=== PATIENT | female | born 1950 | race Caucasian/White ===

== ENCOUNTER 2018-01-02 21:20 | Emergency (ER) | payer OTHER, MEDICARE ==
[~2018-01-02] VITALS: Ht 162.6 cm; Wt 95.0 kg
[~2018-01-02 21:20] MED LIST: AMOXICILLIN500 MG PO; BENZONATATE200 MG PO; ESTRACE VAG0.1 MG/GM VA; FLORASTOR250 M1 PO; LORTAB 5/3255 MG PO; METOPROL TAR25 MG PO; MICARDIS HC1 PO; PROAIR HFA IN; ST JOSEPH75 MG OR; TORADOL PO
[2018-01-02] MEDS ORDERED: ULTRAM50 M1 PO (22:03)
[2018-01-02 22:20] VITALS: BP 148/77
== END 2018-01-02 22:28 | disposition home or self-care (01) | DRG 605 ==
LOC: ED 21:20
DX: S90.31XA Contusion of right foot, initial encounter (principal); S00.03XA Contusion of scalp, initial encounter; S50.311A Abrasion of right elbow, initial encounter; I10 Essential (primary) hypertension; W10.9XXA Fall (on) (from) unspecified stairs and steps, initial encounter; Y92.009 Unspecified place in unspecified non-institutional (private) residence as the place of occurrence of the external cause

== ENCOUNTER 2018-05-22 09:41 | Observation (INO) | payer OTHER, MEDICARE ==
[~2018-05-22] VITALS: Ht 162.6 cm; Wt 96.2 kg
[~2018-05-22 09:41] MED LIST changes: +ULTRAM50 M1 PO
--- NOTE | 2018-05-22 09:50 | NUR ---
TO TX ROOM WITH STEADY GAIT
--- NOTE | 2018-05-22 10:14 | NUR ---
PT HAD BLOOD WORK DRAWN THIS MORNING AND WAS CALLED BY STATING HER BLOOD SUGAR WAS HIGH AND SHE NEEDED TO BE CHECKED OUT AT THE ER. PT STATES SHE HAS HAD POLYDIPSIA AND POLYUREIA FOR THE PAST FEW DAYS. PT STATES VOMING 3 OR 4 TIMES YESTERDAY- NO VOMITING TODAY. PT IS AOX4. PT DENIES ANY C/P, SOB, N/V OR WEAKNESS.
[2018-05-22 10:44] LABS: ALBUMIN 4.2 g/dL (3.2-5.0); ALKALINE PHOSPHATASE 156 u/l (38-126); ANION GAP 18 (6-22 (CALC)); BILIRUBIN, TOTAL 0.9 mg/dL (0.0-1.4); BUN 29 mg/dL (8-23); BUN/CREATININE RATIO 36 (12-20 (CALC)); CARBON DIOXIDE 25 mmol/l (22-30); CHLORIDE 94 mmol/l (95-108); CREATININE 0.8 mg/dL (0.5-1.0); GFR > 60 ML/MIN (>=60 (CALC)); GFR FOR AFR.AMER. > 60 ML/MIN (>=60 (CALC)); POTASSIUM 4.7 mmol/l (3.5-5.1); SGOT/AST 70 u/l (9-36); SGPT/ALT 130 u/l (11-66); TOTAL PROTEIN 7.3 g/dL (6.3-8.2)
[2018-05-22 10:52] LABS: SODIUM 132 mmol/l (137-146)
--- NOTE | 2018-05-22 11:06 | NUR ---
PT INFORMED OF LAB FINDING, PT AMBULATED TO BATHROOM AND BACK TO ROOM
--- NOTE | 2018-05-22 11:46 | NUR ---
ALEXANDRA RANGEL SISTER- PT ALLOWS INFO TO BE GIVEN- [phone] BR[place] - SISTER IN- LAW- [phone]- LIVES WITH.
--- NOTE | 2018-05-22 12:06 | NUR ---
PT RESTING ON STRETCHER, NO COMPLAINTS AT THIS TIME.
--- NOTE | 2018-05-22 13:06 | NUR ---
FLUIDS COMPLETED , PT RESTING ON STRETCHER, NO COMPLAINTS STATED AT THIS TIME.
--- NOTE | 2018-05-22 13:17 | NUR ---
REPORT CALLED TO ECTOR RN- ACCEPTED PT
[2018-05-22 13:30] VITALS: BP 161/62
--- NOTE | 2018-05-22 13:35 | NUR ---
Admission Note Report Given to: ECTOR MCCORMACK Transported by: Wheelchair X Stretcher Transported with: X Nurse Transporter X Patent IV [id number] Cook Dessert TRANSPORTER TO MS2 WITHOUT INCIDENT
--- NOTE | 2018-05-22 15:52 | NUR ---
REPORT RECEIVED FROM MARIBEL IN ED, PT ARRIVED ON UNIT VIA W/C, ALERT AND ORIENTED X 4, ORIENTED TO ROOM AND CALL CHICAS, DENIES PAIN/DISCOMFORT, SETTLED IN BED, WILL CONTINUE TO [facility].
[2018-05-22 16:45] VITALS: BP 128/50
--- NOTE | 2018-05-22 17:33 | NUR ---
DR MENDIOLA ROUNDING AT THIS TIME, ALL PT'S NEEDS MET, EDUCATED ON INSULIN ADMINISTRATION (SQ INJECTIOINS) BUT DID NOT WANT TO GIVE SELF INJECTION, WILL CONTINUE TO MONITOR.
[2018-05-22 18:07] LABS: BUN 23 mg/dL (8-23); BUN/CREATININE RATIO 29 (12-20 (CALC)); CARBON DIOXIDE 27 mmol/l (22-30); CHLORIDE 104 mmol/l (95-108); CREATININE 0.8 mg/dL (0.5-1.0); GFR > 60 ML/MIN (>=60 (CALC)); GFR FOR AFR.AMER. > 60 ML/MIN (>=60 (CALC))
[2018-05-22 18:18] LABS: ANION GAP 14 (6-22 (CALC)); SODIUM 141 mmol/l (137-146)
--- NOTE | 2018-05-22 19:15 | NUR ---
PT UP IN ROOM. PT IS ALERT AND ORIENTED X3. SHIFT ASSESSMENT COMPLETED AT THIS TIME. IV PATENT X1. PLAN OF CARE REVIEWED. CALL LIGHT IN REACH. WILL CONTINUE TO MONITOR
[2018-05-22 19:50] VITALS: BP 135/73
--- NOTE | 2018-05-23 | NUR ---
PT RESTING IN BED AWAKE REQUESTING A SNACK. SNACK PROVIDED. CALL LIGHT IN REACH. WILL CONTINUE TO MONITOR
--- NOTE | 2018-05-23 04:06 | NUR ---
PT RESTING IN BED WATCHING TV. RESP ARE EVEN AND UNLABORED. NO DISTRESS NOTED. CALL LIGHT IN REACH. WILL CONTINUE TO MONITOR
--- NOTE | 2018-05-23 04:30 | NUR ---
LAB INTO DRAW AM LABS
[2018-05-23 04:41] VITALS: BP 154/71
[2018-05-23 05:10] LABS: HEMATOCRIT 39.5 % (37.0-47.0); HEMOGLOBIN 13.5 g/dl (12.0-16.0); MEAN CELL VOLUME 92.1 fL CALC (80.0-100.0); MEAN CORPUSCULAR HGB 31.5 pG CALC (26.0-32.0); MEAN CORPUSCULAR HGB CONC 34.2 g/L CALC (32.0-36.0); RED BLOOD COUNT 4.29 mill/uL (4.20-5.60); RED CELL DISTRI WIDTH 12.7 % (11.5-15.5)
[2018-05-23 05:26] LABS: ANION GAP 10 (6-22 (CALC)); BUN 16 mg/dL (8-23); BUN/CREATININE RATIO 26 (12-20 (CALC)); CARBON DIOXIDE 27 mmol/l (22-30); CHLORIDE 108 mmol/l (95-108); CREATININE 0.6 mg/dL (0.5-1.0); GFR > 60 ML/MIN (>=60 (CALC)); GFR FOR AFR.AMER. > 60 ML/MIN (>=60 (CALC)); POTASSIUM 3.7 mmol/l (3.5-5.1); SODIUM 141 mmol/l (137-146)
[2018-05-23 08:00] VITALS: BP 160/53
--- NOTE | 2018-05-23 08:00 | NUR ---
ASSESSMENT IS COMPLETED: IV SITE IS FREE FROM REDNESS OR EDEMA. HR IS REG, PULSES ARE STRONG X4, ABD IS SOFT WITH ACTIVE BS. BREATH SOUNDS ARE CLEAR, BILATERALLY. PT INQUIRED ABOUT LITERATURE ON DIABETES. GAVE LITERATURE RE: DIET CHANGES AND WHAT TO DO IF SICK.
[2018-05-23 10:05] VITALS: BP 154/71
[2018-05-23] MEDS ORDERED: METFORMIN500 MG PO (13:04)
[2018-05-23] MEDS ORDERED: JANUVIA100 MG PO (13:04)
[2018-05-23] MEDS ORDERED: ATORVASTATIN CA40 MG PO (13:04)
--- NOTE | 2018-05-23 14:00 | NUR ---
IV SITE DISCONTINUED CATHETER INTACT NO REDNESS OR EDEMA.
--- NOTE | 2018-05-23 14:28 | NUR ---
PT RECEIVED DISCHARGE INSTRUCTIONS AND LITERATURE ON DIABETICS AND FEET. VERBALIZED UNDERSTANDING. SAMPLES GIVEN FROM THE OFFICE, Discharge instructions given. Patient verbalizes understanding of same. Discharged in stable condition via Ambulatory to Home with family. All belongings sent with pt.
== END 2018-05-23 14:28 | disposition home or self-care (01) | DRG 639 ==
LOC: ED 09:41 → ED-I 11:08 → ED 12:39 → MS2 12:40
PROVIDERS: Emergency Medicine; ADMIT Internal Medicine; ATTEND Internal Medicine
DX: E11.65 Type 2 diabetes mellitus with hyperglycemia (principal); I10 Essential (primary) hypertension; E78.5 Hyperlipidemia, unspecified
CPT/HCPCS: G0378

== ENCOUNTER → 2019-01-04 | Outpatient (REF) ==
[~2019-01-04] MED LIST changes: +ATORVASTATIN CA40 MG PO; +JANUVIA100 MG PO; +METFORMIN500 MG PO
== END | disposition home or self-care (01) | DRG 951 ==
LOC: LAB 07:28
PROVIDERS: ATTEND Family Medicine
DX: Z02.6 Encounter for examination for insurance purposes (principal)

== ENCOUNTER 2020-08-06 08:51 | Emergency (ER) | payer MEDICARE ==
[~2020-08-06] VITALS: Ht 162.6 cm; Wt 95.0 kg
[2020-08-06] MEDS ORDERED: METFORMIN500 M2 PO ×2 (09:13→09:14)
[2020-08-06] MEDS ORDERED: AMOX/K CLAV875 M1 PO (09:14)
[2020-08-06 09:40] LABS: URINE BILIRUBIN - DIPSTICK NEGATIVE (NEGATIVE); URINE BLOOD DIPSTICK TRACE-INTACT (NEGATIVE); URINE COLOR YELLOW; URINE GLUCOSE - DIPSTICK NEGATIVE (NEGATIVE); URINE KETONE NEGATIVE (NEGATIVE); URINE LEUK ESTERASE NEGATIVE (NEGATIVE); URINE NITRITE - DIPSTICK NEGATIVE (Negative); URINE PROTEIN - DIPSTICK TRACE mg/dL (NEG-TRACE); URINE UROBILINOGEN - DIPSTICK 0.2 E.U./dL (0.2)
[2020-08-06 09:44] LABS: HEMATOCRIT 38.5 % (37.0-47.0); HEMOGLOBIN 12.4 g/dl (12.0-16.0); IMMATURE GRANULOCYTES 0.3 % (0.0-5.0); MEAN CELL VOLUME 92.1 fL CALC (80.0-100.0); MEAN CORPUSCULAR HGB 29.7 pG CALC (26.0-32.0); MEAN CORPUSCULAR HGB CONC 32.2 g/dL CAL (32.0-36.0); NEUT# 4.22 thou/uL (2.00-7.15); RED BLOOD COUNT 4.18 mill/uL (4.20-5.60); RED CELL DISTRI WIDTH 13.5 % (11.5-15.5)
[2020-08-06 10:07] LABS: ALBUMIN 4.3 g/dL (3.2-5.0); ALKALINE PHOSPHATASE 58 u/l (38-126); AMYLASE 173 u/l (30-110); ANION GAP 12 (6-22 (CALC)); BILIRUBIN, TOTAL 0.5 mg/dL (0.0-1.4); BUN 27 mg/dL (8-23); BUN/CREATININE RATIO 27 (12-20 (CALC)); CARBON DIOXIDE 26 mmol/l (22-30); CHLORIDE 105 mmol/l (95-108); GFR 55 ML/MIN (>=60 (CALC)); GFR FOR AFR.AMER. > 60 ML/MIN (>=60 (CALC)); LIPASE 728 u/l (23-300); SGOT/AST 32 u/l (9-36); SODIUM 139 mmol/l (137-146); TOTAL PROTEIN 7.5 g/dL (6.3-8.2)
[2020-08-06 10:19] LABS: MYOGLOBIN 39 ng/mL (0 - 62)
[2020-08-06] MEDS ORDERED: PREVACID30 M3 PO (12:07)
[2020-08-06] MEDS ORDERED: ONDANSETRON4 MG PO (12:07)
[2020-08-06 12:10] VITALS: BP 163/70
== END 2020-08-06 12:20 | disposition home or self-care (01) ==
LOC: ED 08:51
PROVIDERS: Emergency Medicine
DX: N20.0 Calculus of kidney (principal); R74.8 Abnormal levels of other serum enzymes; I10 Essential (primary) hypertension; E11.9 Type 2 diabetes mellitus without complications; Z87.442 Personal history of urinary calculi; Z79.84 Long term (current) use of oral hypoglycemic drugs
CPT/HCPCS: Q9967

== ENCOUNTER 2021-01-04 07:52 | Emergency (ER) | payer MEDICARE ==
[~2021-01-04] VITALS: Ht 162.6 cm; Wt 68.0 kg
[~2021-01-04 07:52] MED LIST changes: +AMOX/K CLAV875 M1 PO; +METFORMIN500 M2 PO; +ONDANSETRON4 MG PO; +PREVACID30 M3 PO
[2021-01-04 08:32] LABS: IMMATURE GRANULOCYTES 0.3 % (0.0-5.0); MEAN CELL VOLUME 90.9 fL CALC (80.0-100.0); MEAN CORPUSCULAR HGB 29.5 pG CALC (26.0-32.0); MEAN CORPUSCULAR HGB CONC 32.4 g/dL CAL (32.0-36.0); NEUT# 4.81 thou/uL (2.00-7.15); RED BLOOD COUNT 4.07 mill/uL (4.20-5.60); RED CELL DISTRI WIDTH 13.9 % (11.5-15.5)
[2021-01-04 08:33] LABS: URINE BILIRUBIN - DIPSTICK NEGATIVE (NEGATIVE); URINE BLOOD DIPSTICK SMALL (NEGATIVE); URINE COLOR YELLOW; URINE GLUCOSE - DIPSTICK NEGATIVE (NEGATIVE); URINE KETONE NEGATIVE (NEGATIVE); URINE LEUK ESTERASE TRACE (NEGATIVE); URINE NITRITE - DIPSTICK NEGATIVE (Negative); URINE PROTEIN - DIPSTICK NEGATIVE (NEG-TRACE); URINE UROBILINOGEN - DIPSTICK 0.2 E.U./dL (0.2)
[2021-01-04 08:47] LABS: ALBUMIN 4.4 g/dL (3.2-5.0); BILIRUBIN, TOTAL 0.6 mg/dL (0.0-1.4); CREATININE 1.2 mg/dL (0.5-1.0); POTASSIUM 3.5 mmol/l (3.5-5.1); TOTAL PROTEIN 7.6 g/dL (6.3-8.2)
[2021-01-04 08:49] LABS: URINE RBC 0-2 RBC/hpf (0-5); URINE WBC 0-2 WBC/hpf (0-5)
[2021-01-04] MEDS ORDERED: TAMSULOSIN0.4 MG PO (11:09)
[2021-01-04] MEDS ORDERED: ZOFRAN4 MG/TAB PO (11:09)
[2021-01-04] MEDS ORDERED: HYDROCO/APAP1 TA9 PO (11:09)
[2021-01-04 11:12] VITALS: BP 151/71
[2021-01-04] MEDS ORDERED: ULTRAM50 MG PO (11:21)
== END 2021-01-04 11:32 | disposition home or self-care (01) ==
LOC: ED 07:52
DX: N13.2 Hydronephrosis with renal and ureteral calculous obstruction (principal); R74.8 Abnormal levels of other serum enzymes; I10 Essential (primary) hypertension; E11.9 Type 2 diabetes mellitus without complications; Z79.84 Long term (current) use of oral hypoglycemic drugs; Z87.442 Personal history of urinary calculi